=== PATIENT | male | born 1985 | race Caucasian/White ===

== ENCOUNTER 2016-11-05 21:34 | Emergency (ER) | payer MEDICAID ==
--- NOTE | 2016-11-05 23:32 | ER Document Report ---
ED Medical Screen (RME) - General TRAVEL OUTSIDE OF THE [place] IN LAST 30 DAYS: No - General Chief Complaint: Psych Problem Stated Complaint: PSYCH PROBLEM Time Seen by Provider: 11/05/16 23:24 Notes: 31 year old male presenting to the ED for suicidal ideation and possible overdose. Patient allegedly overdosed in front of the shroudman's office from an unknown substance. Patient is cooperative and confused at times. Patient's parents are trying to get IVC paperwork for violence and substance abuse. Mother is concerned the patient is suicidal and has overdosed. Patient had to be aroused with a sternal rub and by shaking the bed. Patient became agitated when being woken up and during the exam with lots of people around. Security was called to the room and stood by while the reset of the exam was complete. I have greeted and performed a rapid initial assessment of this patient. A comprehensive ED assessment and evaluation of the patient, analysis of test results and completion of the medical decision making process will be conducted by additional ED providers. (JOANNE LEONE) - Related Data Allergies/Adverse Reactions: No Known Allergies Allergy (Verified 07/08/14 18:14) Past Medical History - Past Medical History Cardiac Medical History: Denies: Hx Coronary Artery Disease, Hx Heart Attack, Hx Hypertension Pulmonary Medical History: Denies: Hx Asthma, Hx Bronchitis, Hx COPD, Hx Pneumonia Neurological Medical History: Denies: Hx Cerebrovascular Accident, Hx Seizures Renal/ Medical History: Denies: Hx Peritoneal Dialysis Musculoskeltal Medical History: Denies Hx Arthritis - Immunizations Immunizations up to date: Yes Hx Diphtheria, Pertussis, Tetanus Vaccination: No Physical Exam - Vital signs Vitals: Temp Pulse Resp BP Pulse Ox 98.2 F 85 18 115/60 100 11/05/16 22:00 11/05/16 22:00 11/05/16 22:00 11/05/16 22:00 11/05/16 22:00 - Notes Notes: GENERAL: Alert, interacts well. No acute distress. LUNGS: Clear to auscultation bilaterally, no wheezes, rales, or rhonchi. No respiratory distress. HEART: Regular rate and rhythm. No murmurs, gallops, or rubs. ABDOMEN: Soft, non-tender. Non-distended. Bowel sounds present in all 4 quadrants. (JOANNE LEONE) Course - Re-evaluation Re-evalutation: 11/05/16 23:43 10 presents the emergency department for substance abuse evaluation. He said he recently got to care home where he was in half-way for one week ago. 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 Says he has a history of bipolar disorder but not taking any meds he does not know how he got here tonight after arousing him at the bedside he denies any suicidal homicidal ideation. 11/05/16 23:44 (ABLWINDER SMITH) - Vital Signs Vital signs: Temp Pulse Resp BP Pulse Ox 98.2 F 85 18 115/60 100 11/05/16 22:00 11/05/16 22:00 11/05/16 22:00 11/05/16 22:00 11/05/16 22:00
--- NOTE | 2016-11-06 00:14 | ER Document Report ---
ED Psych Disorder / Suicide - General Chief Complaint: Psych Problem Stated Complaint: PSYCH PROBLEM Time Seen by Provider: 11/05/16 23:24 Mode of Arrival: Ambulatory Information source: Patient, Parent TRAVEL OUTSIDE OF THE [place] IN LAST 30 DAYS: No - HPI Patient complains to provider of: Agitated, Bizarre behavior, Overdose Onset: Just prior to arrival Suicide Risk Factors: Male, Substance abuse Situational problems related to: Daughter Suicide Attempt Method: Overdose Normal mood: No Associated symptoms: Labile Notes: Patient is a 31-year-old male with a history of substance abuse who was brought to the emergency room by mother for complaints of overdose, with reports that he overdosed on some medications in front of the police station, patient admits to overdosing on some medications but denies it was a suicide attempt, although he reports he has overdosed in the past, it is very difficult to get a straight answer from patient as I ask him one question and he goes off on a tangent about his daughter, and his ex-girlfriend who is his child's mother, who currently has a new boyfriend, he then goes off on a tangent about his brother who he wants to physically harm because he apparently is doing much better than the patient in life, it is very difficult to follow patient's stories, and his answers to questions that I ask do not make sense at this point in time, it is unclear what he overdosed on, although EMS reports that he took a few Ativan prior to coming in, patient admits that he has a substance abuse problem, that he also has anger management issues, and he is agreeable to staying in the emergency room for a mental health evaluation - Related Data Allergies/Adverse Reactions: No Known Allergies Allergy (Verified 07/08/14 18:14) Past Medical History - General Information source: Patient, Emergency Med Personnel - Social History Smoking Status: Current Every Day Smoker Family History: Reviewed & Not Pertinent - Past Medical History Cardiac Medical History: Denies: Hx Coronary Artery Disease, Hx Heart Attack, Hx Hypertension Pulmonary Medical History: Denies: Hx Asthma, Hx Bronchitis, Hx COPD, Hx Pneumonia Neurological Medical History: Denies: Hx Cerebrovascular Accident, Hx Seizures Renal/ Medical History: Denies: Hx Peritoneal Dialysis Musculoskeltal Medical History: Denies Hx Arthritis - Immunizations Immunizations up to date: Yes Hx Diphtheria, Pertussis, Tetanus Vaccination: No Review of Systems - Review of Systems Constitutional: No symptoms reported EENT: No symptoms reported Cardiovascular: No symptoms reported Respiratory: No symptoms reported Gastrointestinal: No symptoms reported Genitourinary: No symptoms reported Male Genitourinary: No symptoms reported Musculoskeletal: No symptoms reported Skin: No symptoms reported Hematologic/Lymphatic: No symptoms reported Neurological/Psychological: See HPI -: Yes All other systems reviewed and negative Physical Exam - Vital signs Vitals: Temp Pulse Resp BP Pulse Ox 98.2 F 85 18 115/60 100 11/05/16 22:00 11/05/16 22:00 11/05/16 22:00 11/05/16 22:00 11/05/16 22:00 Interpretation: Normal - General General appearance: Appears well, Alert - HEENT Head: Normocephalic, Atraumatic Eyes: Normal Pupils: PERRL - Respiratory Respiratory status: No respiratory distress Chest status: Nontender Breath sounds: Normal Chest palpation: Normal - Cardiovascular Rhythm: Regular Heart sounds: Normal auscultation Murmur: No - Abdominal Inspection: Normal Distension: No distension Bowel sounds: Normal Tenderness: Nontender Organomegaly: No organomegaly - Back Back: Normal, Nontender - Extremities General upper extremity: Normal inspection, Nontender, Normal color, Normal ROM , Normal temperature General lower extremity: Normal inspection, Nontender, Normal color, Normal ROM , Normal temperature, Normal weight bearing. No: Diane's sign - Neurological Neuro grossly intact: Yes Cognition: Normal Orientation: AAOx4 Superior Coma Scale Eye Opening: Spontaneous Superior Coma Scale Verbal: Oriented Superior Coma Scale Motor: Obeys Commands Superior Coma Scale Total: 15 Speech: Normal Motor strength normal: LUE, RUE, LLE, RLE Sensory: Normal - Psychological Associated symptoms: Aggressive, Agitated, Angry, Restlessness, Tangential speech - Skin Skin Temperature: Warm Skin Moisture: Dry Skin Color: Normal Course - Re-evaluation Re-evalutation: 11/06/16 07:21 Patient's family reports that he is suicidal, overdosing on Ativan prior to coming to the emergency room, that he is violent and aggressive towards them, making threats of harm towards others, in the emergency room he did admit to overdosing, although denies suicidal ideation, he admits to substance abuse, he did make threats of harm towards his brother, most of the time during my evaluation patient did not answer my questions appropriately or his answers did not make any sense, he frequently went off on tangents about his child, his ex- girlfriend who is his child's mother, his brother, his parents, it was very difficult to ascertain an appropriate history on patient, since he did make threats of harm against his brother and he did admit to overdosing on unknown substance, patient was placed on IVC paperwork and held in the emergency room for further evaluation by mental health team in the morning, he is otherwise medically stable for transport or discharge - Vital Signs Vital signs: Temp Pulse Resp BP Pulse Ox 97.5 F 70 16 114/78 100 11/06/16 06:49 11/06/16 06:49 11/06/16 06:49 11/06/16 06:49 11/06/16 06:49 - Laboratory Result Diagrams: 11/06/16 00:30 11/06/16 00:30 Laboratory results interpreted by me: 11/06/16 11/06/16 00:30 00:30 Basophils % 2.5 H Carbon Dioxide 18 L Total Protein 8.4 H Albumin 5.3 H Salicylates < 1.0 L Acetaminophen < 10 L - EKG Interpretation by Me EKG shows normal: Sinus rhythm Rate: Normal Rhythm: NSR Discharge - Discharge Clinical Impression: Substance abuse Drug overdose Qualifiers: Encounter type: initial encounter Injury intent: undetermined intent Qualified Code(s): T50.904A - Poisoning by unspecified drugs, medicaments and biological substances, undetermined, initial encounter Condition: Stable Disposition: PSYCH HOSP/UNIT
[2016-11-06 00:55] LABS: ABSOLUTE BASOPHILS # (AUTO) 0.2 10^3/uL (0.0-0.2); ABSOLUTE EOSINOPHILS # (AUTO) 0.4 10^3/uL (0.0-0.6); ABSOLUTE LYMPHOCYTES (AUTO) 3.5 10^3/uL (0.5-4.7); ABSOLUTE MONOCYTES (AUTO) 0.9 10^3/uL (0.1-1.4); ABSOLUTE NEUT (AUTO) 3.8 10^3/uL (1.7-8.2); BASOPHILS % (AUTO) 2.5 % (0-2); EOSINOPHILS % (AUTO) 4.9 % (0-6); HEMATOCRIT 44.5 % (37.9-51.0); HEMOGLOBIN 14.7 g/dL (13.5-17.0); HGB HCT DIFFERENCE -0.4; LYMPHOCYTES % (AUTO) 39.5 % (13-45); MEAN CORPUSCULAR HEMOGLOBIN 30.9 pg (27.0-33.4); MEAN CORPUSCULAR HGB CONC 33.1 g/dL (32.0-36.0); MEAN CORPUSCULAR VOLUME 93 fl (80-97); MONOCYTES % (AUTO) 9.8 % (3-13); RED BLOOD COUNT 4.78 10^6/uL (4.35-5.55); RED CELL DISTRIBUTION WIDTH 13.4 % (11.5-14.0); SEGMENTED NEUTROPHILS % (AUTO) 43.3 % (42-78); WHITE BLOOD COUNT 8.7 10^3/uL (4.0-10.5)
[2016-11-06 01:10] LABS: ALANINE AMINOTRANSFERASE 33 U/L (21-72); ALBUMIN 5.3 g/dL (3.5-5.0); ALKALINE PHOSPHATASE 68 U/L (38-126); ASPARTATE AMINO TRANSFERASE 26 U/L (17-59); BILIRUBIN,DIRECT 0.3 mg/dL (0.0-0.4); BILIRUBIN,TOTAL 0.5 mg/dL (0.2-1.3); BLOOD UREA NITROGEN 16 mg/dL (7-20); CALCIUM 9.7 mg/dL (8.4-10.2); CARBON DIOXIDE 18 mmol/L (22-30); CREATININE RESULT 1.05 mg/dL (0.52-1.25); GLUCOSE 90 mg/dL (75-110); POTASSIUM 3.9 mmol/L (3.6-5.0); TOTAL PROTEIN 8.4 g/dL (6.3-8.2)
[2016-11-06] MEDS ORDERED: DIPHENHYDRAMINE HCL 50 MG/ML VIAL IM ONE (01:13)
[2016-11-06] MEDS ORDERED: LORAZEPAM INJ 2 MG/1 ML VIAL IM ONE (01:13)
[2016-11-06] MEDS ORDERED: LORAZEPAM INJ 2 MG/1 ML VIAL ONE (01:17)
[2016-11-06] MEDS ORDERED: DIPHENHYDRAMINE HCL 50 MG/ML VIAL ONE (01:18)
[2016-11-06 01:22] LABS: ALCOHOL < 10 mg/dL (NONE DETECTED)
[2016-11-06 01:33] LABS: ANION GAP 18 (5-19); CHLORIDE 105 mmol/L (98-107); SODIUM 141.2 mmol/L (137-145)
[2016-11-06 01:44] LABS: APPEARANCE,URINE CLEAR; BILIRUBIN,URINE NEGATIVE (NEGATIVE); GLUCOSE, URINE NEGATIVE (NEGATIVE); KETONES,URINE NEGATIVE (NEGATIVE); LEUKOCYTE ESTERASE,URINE NEGATIVE (NEGATIVE); NITRITE,URINE NEGATIVE (NEGATIVE); PROTEIN,URINE NEGATIVE (NEGATIVE); UROBILINOGEN,URINE NEGATIVE mg/dL (<2.0)
[2016-11-06 02:33] LABS: URINE BARBITURATES SCREEN NEGATIVE; URINE METHADONE SCREEN NEGATIVE; URINE OPIATES LOW UNCONFIRMED POSITIVE; URINE PHENCYCLIDINE SCREEN NEGATIVE
--- NOTE | 2016-11-06 09:46 | ER Document Report ---
Doctor's Note Notes: 11/06/16 09:46 This is a 31-year-old man with a history of substance abuse who is brought into the emergency room by EMS with concerns for a medication overdose. Records reveal that the patient's family had reported that the patient was suicidal, had anger management issues and was taking excessive doses of Ativan. The patient was placed on an IVC protocol in the emergency room and is currently awaiting psychiatric evaluation. Labs reveal that his blood pressure was low at 03:35, but his vital signs have subsequently been stable. On physical exam, the patient is sleeping but arousable. He denies any complaints at this time. We are awaiting psychiatric evaluation. 11/06/16 10:04 11/06/16 12:47 This case with the psychiatric technician who is interviewed the patient. She does report that the patient has been stealing his mother's benzodiazepines. Denies any suicidal ideations at this time. No longer meets any criteria to be kept here against his will. I have Encouraged that he follow -up with [facility].
--- NOTE | 2016-11-06 12:42 | ER Document Report ---
ED Psych Disorder / Suicide - General Chief Complaint: Psych Problem Stated Complaint: PSYCH PROBLEM Time Seen by Provider: 11/05/16 23:24 Mode of Arrival: Ambulatory Information source: Patient, Relative, [facility] Records TRAVEL OUTSIDE OF THE [place] IN LAST 30 DAYS: No - HPI Patient complains to provider of: Agitated, Suicidal ideation - reported SI via alleged overdose, but patient denied upon arrival, Other - substance abuse Onset: Other Onset was: Cannot confirm Suicide Risk Factors: Bipolar, Frightened friends/family, Substance abuse - pt reported long hx of cocaine, prescription pill abuse, etc. Situational problems related to: Daughter, Significant other - reported discord with baby mamdionna Normal mood: Yes Associated symptoms: Normal affect, Normal mood Similar symptoms previously: Yes Recently seen / treated by doctor: No Notes: Patient is a 31 year old male who presented last night reportedly under the influence of percocet pills, which he is reportedly known to abuse. Patient's family reported concerns that the patient overdosed with unknown intent. Patient this morning is difficult to arouse, but does so after numerous prompts. Patient maintains that he is not experiencing suicidal ideations. Patient states he does now know if he made SI type statements last night or not. Patient verbally endorses a long history of SA. Careful review of patient' s record suggests one prior episode or similar etiology in the spring at which time patient was referred out to [facility]. Throughout the morning, the patient has denied SI. Patient eventually disclosed that his mother wants him out of the lives of his daughters, and she makes claims of SI during these types of incidents. Patient maintains he is not experiencing SI. Patient reports he unintentionally overdosed on pills. Patient is A&Ox4. Mooed is euthymic with normal affect. Patient denies suicidal/ homicidal ideations, intent, plan, or means. Patient denies A/V H; delusions not noted. Thought processes were organized. Conversational speech was WNL for rate, tone, and prosody. Intellectual abilities were estimated within low average range. Attention and focus were fair. Insight, judgment, and impulse control were poor. Unspecified Other (or Unknown) Substance-Related Disorder 292.9 F19.99 Unspecified Bipolar and Other Related Disorder Patient is psychiatrically cleared for discharge. Patient has provided various accounts of incidents occurring last night. He states he obtains the Ativan from his mother, who incidentally has custody of his two daughters. Patient state he is permitted 2 hour supervised visitation, and did visit yesterday. Numerous attempts were made at obtaining contact information; however, unsuccessful as patient was unable to provide contacts. Patient is recommended to follow up with [facility] for substance abuse assessment and possible services. I consulted with Dr. Goldstein in regards to the care and management of this patient. Addendum: Patient's mother reportedly called multiple times to speak with this clinician; however, was otherwise occupied. Mother then called from the front window cashier to express concerns about patient's discharge, stating he was at her work rummaging through her coworker's bags looking for pills. Additionally stated patient has overdosed multiple times. Mother ended the conversation by stating, "it is on your conscience if he dies." Note, patient is an adult and his own guardian, thus no information was provided to the mother per HIPPA. - Related Data Allergies/Adverse Reactions: No Known Allergies Allergy (Verified 07/08/14 18:14) Past Medical History - General Information source: Patient, Emergency Med Personnel, [facility] Records - Social History Smoking Status: Current Every Day Smoker Cigarette use (# per day): Yes Smoking Education Provided: Yes Drug Abuse: None Family History: Reviewed & Not Pertinent Patient has suicidal ideation: No Patient has homicidal ideation: No - Past Medical History Cardiac Medical History: Denies: Hx Coronary Artery Disease, Hx Heart Attack, Hx Hypertension Pulmonary Medical History: Denies: Hx Asthma, Hx Bronchitis, Hx COPD, Hx Pneumonia Neurological Medical History: Denies: Hx Cerebrovascular Accident, Hx Seizures Renal/ Medical History: Denies: Hx Peritoneal Dialysis Musculoskeltal Medical History: Denies Hx Arthritis - Immunizations Immunizations up to date: Yes Hx Diphtheria, Pertussis, Tetanus Vaccination: No Physical Exam - Vital signs Vitals: Temp Pulse Resp BP Pulse Ox 98.2 F 85 18 115/60 100 11/05/16 22:00 11/05/16 22:00 11/05/16 22:00 11/05/16 22:00 11/05/16 22:00 Course - Vital Signs Vital signs: Temp Pulse Resp BP Pulse Ox 98.3 F 68 16 119/70 99 11/06/16 13:06 11/06/16 13:06 11/06/16 13:06 11/06/16 13:06 11/06/16 13:06 - Laboratory Result Diagrams: 11/06/16 00:30 11/06/16 00:30 Laboratory results interpreted by me: 11/06/16 11/06/16 00:30 00:30 Basophils % 2.5 H Carbon Dioxide 18 L Total Protein 8.4 H Albumin 5.3 H Salicylates < 1.0 L Acetaminophen < 10 L Discharge - Discharge Clinical Impression: Substance abuse Overdose Qualifiers: Encounter type: initial encounter Injury intent: undetermined intent Qualified Code(s): T50.904A - Poisoning by unspecified drugs, medicaments and biological substances, undetermined, initial encounter Condition: Stable Disposition: HOME, SELF-CARE Additional Instructions: Overdose You have taken more medication than you should have. After your evaluation and care, it is felt that your overdose is not likely to be harmful or of any significant consequences to you and you are being discharged. In the future, you should be careful not to take more medications than what is prescribed for you. Although your overdose does not seem to be of any danger to you at this time, if you develop any unusual or unexpected symptoms after your discharge, you should return to the Emergency Department immediately for re-evaluation. Please follow up with [facility] to evaluate your use of prescription pills and illegal drugs. Please walk in tomorrow morning at 0900. Please return if your symptoms worsen. You have denied suicidal ideations and or suicide intent. Referrals: [facility] [Provider Group] - Follow up as needed
--- NOTE | 2016-11-06 13:06 | EKG REPORT ---
SEVERITY:- BORDERLINE ECG - SINUS RHYTHM PROBABLE LEFT ATRIAL ABNORMALITY BORDERLINE PROLONGED QT INTERVAL : Confirmed by: Lucrecia Coello MD 06-Nov-2016 13:05:58
[2016-11-06 13:09] VITALS: BP 119/70
== END 2016-11-06 13:08 | disposition home or self-care (01) ==
LOC: ER 21:34
DX: T50.904A Poisoning by unspecified drugs, medicaments and biological substances, undetermined, initial encounter (principal); Y92.89 Other specified places as the place of occurrence of the external cause; F11.10 Opioid abuse, uncomplicated; F17.210 Nicotine dependence, cigarettes, uncomplicated; Z71.6 Tobacco abuse counseling
CPT/HCPCS: 93005; 99285; 96372; 36415; 80307 ×4; 85025; 80053; 81001; 93010; J1200; J2060

== ENCOUNTER 2019-11-12 01:59 | Emergency (ER) | payer SELFPAY ==
[2019-11-12 02:11] VITALS: BP 118/77
== END 2019-11-12 08:09 | disposition left against medical advice (07) ==
LOC: ER 01:59
DX: Z53.21 Procedure and treatment not carried out due to patient leaving prior to being seen by health care provider (principal)